=== PATIENT | male | born 2000 | race Caucasian/White ===

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

== ENCOUNTER 2020-02-14 06:13 | Inpatient (IN) | payer OTHER ==
[2020-02-14] MEDS ORDERED: Lorazepam 2 MG/ML VIAL ONE (06:25)
[2020-02-14 06:40] LABS: #Lymphocytes 1.2 thou/uL (1.20-3.40); #Monocytes 0.7 thou/uL (0.11-0.59); #Neutrophils 12.2 thou/uL (1.40-6.50); %Eosinophils 0.2 % (0.0-10.0); %Lymphocytes 8.7 % (28.0-48.0); %Monocytes 4.7 % (0.0-4.0); %Neutrophils 86.5 % (31.0-61.0); Mean Corpuscular HGB CONC 34.1 g/dL (32.0-36.0); Mean Corpuscular Volume 87.9 fL (78.0-98.0); Mean Platelet Volume 6.7 fL (7.4-10.4); Platelet Count 242 thou/uL (130-400); RBC Distribution Width 12.3 % (11.5-14.5); Red Blood Cell (RBC) Count 5.33 mill/uL (4.00-5.20); White Blood Cell (WBC) Count 14.1 thou/uL (4.8-10.8)
[2020-02-14 07:01] LABS: ALT (SGPT) 32 U/L (8-55); AST (SGOT) 35 U/L (10-45); Acetaminophen Less than 6.0 mcg/mL (10.0-30.0); Albumin 5.3 g/dL (3.5-5.0); Alcohol Less than 10 mg/dL (Less than 10); Alkaline Phosphatase 98 U/L (50-130); Anion Gap 12 mmol/L (10-20); BUN (Urea Nitrogen) 12 mg/dL (8.4-21.0); Bilirubin, Total 0.7 mg/dL (0.2-1.2); CK (CPK) 371 U/L (30-200); Calc. Creatinine Clearance 0 mL/min (70-130); Calcium 11.6 mg/dL (7.8-10.44); Carbon Dioxide 28 mmol/L (22-29); Chloride 106 mmol/L (98-107); Estimated GFR-MDRD Greater than 90; Globulin 2.8 g/dL (2.4-3.5); Glucose 101 mg/dL (70-105); Potassium 4.6 mmol/L (3.5-5.1); Protein, Total 8.1 g/dL (6.0-8.3); Salicylate Less than 8.0 mg/dL (15.0-30.0); Sodium 141 mmol/L (136-145)
[2020-02-14 07:28] LABS: Amphetamine Not Detected (NotDetected); Barbiturates Screen Not Detected (NotDetected); Benzodiazepine Screen Not Detected (NotDetected); Cocaine Metabolite Screen Not Detected (NotDetected); Medtox Control Line Valid? VALID (VALID); Medtox Reader # READER 4; Methadone Not Detected (NotDetected); Methamphetamine Not Detected (NotDetected); Opiate Screen Not Detected (NotDetected); Oxycodone Screen Not Detected (NotDetected); Phencyclidine (PCP) Not Detected (NotDetected); THC/Cannabinoid Screen Not Detected (NotDetected); Tricyclic Screen Not Detected (NotDetected)
--- NOTE | 2020-02-14 09:27 | CT ---
CT BRAIN WITHOUT CONTRAST: HISTORY: Altered mental status. The patient's father reports that he has been struggling with drug addiction. FINDINGS: No evidence of acute infarct, hemorrhage, midline shift or abnormal extraaxial fluid collection is se en. The ventricular size is normal and the basilar cisterns are patent. The bony calvarium is intact. The visualized paranasal sinuses and mastoid air cells are well aerated. IMPRESSION: No CT evidence of acute intracranial process. POS: [facility]GG[facility]
--- NOTE | 2020-02-14 10:17 | RAD ---
PORTABLE CHEST ONE VIEW: 02/14/20 10:09 a.m. HISTORY: Altered mental status. Drug addiction. FINDINGS: The heart size is normal. The lungs are well expanded without focal areas of consolidation, pneumotho races or pleural effusions. IMPRESSION: No radiographic evidence of acute cardiopulmonary process. POS: GREGGA
[2020-02-14] MEDS ORDERED: Lidocaine 1% w/Epinephrine 1:100K 20 ML VIAL ONE (11:22)
[2020-02-14 11:36] LABS: Bilirubin Negative (Negative); Blood, Urine Negative (Negative); Clarity Clear (Clear); Glucose, Urine (Dipstick) Normal (Negative); Ketone, Urine Negative (Negative); Leukocyte Negative Leu/uL (Negative); Nitrite Negative (Negative); Protein, Urine (Dipstick) Negative (Neg-Trace); Specific Gravity, Urine 1.005 (1.002-1.036); Urobilinogen Normal mg/dL (Less than 2)
[2020-02-14] MEDS ORDERED: Calcium Carbonate 500 MG ChewTAB PO PRN (11:42)
[2020-02-14] MEDS ORDERED: Senokot S 8.6-50 MG TAB PO PRN (11:42)
[2020-02-14] MEDS ORDERED: Acetaminophen 650 MG Suppository PR PRN (11:42)
[2020-02-14] MEDS ORDERED: Acetaminophen 325 MG TAB PO PRN (11:42)
[2020-02-14] MEDS ORDERED: Vancomycin 1 GM in Premix Bag 1 BAG IVPB SCH ×2 (12:00→21:00)
[2020-02-14 12:32] LABS: Color Of CSF Supernatant COLORLESS (Colorless); Tube # 1; Unspun CSF Color PINK (Colorless)
[2020-02-14] MEDS ORDERED: Sodium Chloride 0.9% (PF) 10 ML VIAL FS PRN (12:34)
[2020-02-14] MEDS ORDERED: Vancomycin 1.5 GRAM/300 ML BAG 1.5 GM in Premix Bag 1 BAG IVPB SCH ×2 (12:45→15:15)
[2020-02-14 12:46] LABS: CSF, Glucose 64 mg/dl (40-70); CSF, Protein 58 mg/dL (15-40)
[2020-02-14] MEDS ORDERED: cefTRIAXone\\ROCEPHIN 2 GM in Sodium Chloride 0.9% 100 ML IVPB SCH (13:00)
[2020-02-14 13:29] LABS: CSF Source CSF; Clarity Clear (Clear); Tube # 2; Tube # 4
--- NOTE | 2020-02-14 14:38 | HP ---
PRIMARY CARE PHYSICIAN: Dr. Jalloh with [facility]. CHIEF COMPLAINT: Altered mental status, possible polysubstance abuse. HISTORY OF PRESENT ILLNESS: The HPI was taken from the patient's parents at bedside secondary to the patient's altered mental status. The parents report that the patient has a significant history for polysubstance abuse including marijuana, Adderall, LSD, and acid, who presents to the ER for the above complaint. The mother and father report receiving a call around 0530 this morning from one of the patient's friends who reported that they had all been drinking and the patient's behavior was erratic. Also, he told them that the patient admitted to using LSD around 2330 that evening. The parents live very close to where their son was, so they drove to the house. Once there, the father reported that the patient was "jansen naked." He was non-violent, but he was acting "crazy." His speech was erratic with possible delusions. The father who loaded the patient into his car and drove to the ER. Of note, the patient was recently placed on Zoloft after seeing his primary care provider one week earlier. The mother also reports that she checked his pill bottle and he has been taking the medication as prescribed. In the ER, the patient was found with a normal temperature, high blood pressure , tachycardic, tachypneic with normal O2 saturation. CT of the brain was negative. Urine drug screen was negative. CK was 371. Electrolytes were unremarkable. WBCs were 14.1. The patient was given 2 mg of Ativan IV push and 1 L of normal saline, which seemed to improve the patient's erratic behavior. PAST MEDICAL HISTORY: Polysubstance abuse. PAST SURGICAL HISTORY: None. SOCIAL HISTORY: The patient lives alone in a garage apartment. He has a past medical history significant for marijuana abuse, Adderall abuse, LSD abuse, and acid abuse. He drinks alcohol frequently. No smoking history. He ambulates without any assistive devices. FAMILY HISTORY: The patient's uncle has a significant history for bipolar disease. ALLERGIES: NO KNOWN DRUG ALLERGIES. MEDICATIONS: Zoloft 100 mg p.o. daily. REVIEW OF SYSTEMS: All review of systems are negative unless otherwise stated in the HPI. PHYSICAL EXAMINATION: VITAL SIGNS: Temperature 99.3, blood pressure 128/77, pulse 72, respirations 18 , 100% on room air, 0/10 pain. CONSTITUTIONAL: The patient is somnolent, responds to verbal commands. He is confused. He is in no acute distress at this time. He has a normal blood pressure, normal pulse, normal respirations and is afebrile. HEAD: Atraumatic and normocephalic. EYES: Pupils are equal, round, and reactive to light. Extraocular muscles are intact. Sclerae nonicteric. ENT: Bilateral EACs are clear. TMs intact. Nares patent. Oropharynx is clear. Uvula midline. Moist mucous membranes. No oral lesions. NECK: Full range of motion. No cervical spinous tenderness. Trachea is midline. No JVD. No cervical adenopathy. RESPIRATORY/CHEST: Respirations even and nonlabored. Clear to auscultation. No rhonchi, wheezes, or rales. CARDIAC: S1, S2 appreciated. Regular rate and rhythm. No murmurs, rubs, or gallops. ABDOMEN: Abdomen is soft, nontender, nondistended. Active bowel sounds. No guarding. No rigidity. No rebound. Negative Mahan negative. Negative Rovsing sign. BACK: Full range of motion. No central spinous tenderness. No CVA tenderness. EXTREMITIES: Upper extremities; full range of motion, normal strength, sensation intact. Palpable radial pulses. Lower extremities; full range of motion, normal strength, sensation intact. Palpable pedal pulses. No swelling. NEUROLOGIC: The patient is somnolent, awakens to voice, able to follow commands , is confused. When asked his parents' names at bedside, he reported that he knew who they were, but could not repeat their names. He moves all extremities well. No focal motor deficits. PSYCHIATRIC: The patient's affect is inappropriate. The patient is somnolent, able to follow commands. SKIN: Multiple abrasions on to the right dorsum of the foot. LABS AND DIAGNOSTICS: EKG was sinus tachycardic with no ST elevations, heart rate 114. CT of the brain was negative. Chest x-ray was negative for any acute process. Urine drug screen was negative. Plasma alcohol was negative. UA was unremarkable. Sodium 141, potassium 4.6, chloride 106, carbon dioxide 28, BUN 12, creatinine 0.99, glucose 101, calcium 11.6, total bilirubin 0.7, AST 35, ALT 32, and alkaline phosphatase 98. CK 371. WBCs 14.1, hemoglobin 16, hematocrit 46.9, platelets 242. IMPRESSION AND PLAN: 1. Altered mental status. We will admit the patient to medical floor inpatient status. Expected length of stay at least 2 midnights. The patient presented with normal temperature, elevated blood pressure, tachycardic, tachypneic, normal O2 saturation. CT of the brain was negative for any acute process. Urine drug screen was negative. Electrolytes were unremarkable. CK was 371. The patient's symptoms improved with Ativan IV push and 1 L of normal saline. We will continue to IV hydrate. We will order a lumbar puncture. We will order pre-COVID test prior to lumbar puncture. We will check a TSH and a UA. We will obtain blood cultures and check a lactic acid. We will repeat a CMP and CBC in a.m. We will start the patient on broad-spectrum vanc and ceftriaxone for empiric antibiotic therapy at this time secondary to elevated white blood cell count. 2. History of polysubstance abuse. Parents report history of abuse of marijuana , Adderall, LSD, and acid. Recently saw his PCP and was started on Zoloft. They are very concerned and want help upon discharge. 3. Rhabdomyolysis, mild. The patient presented with a CK of 371. He has received 1 L of normal saline. We will continue normal saline. We will recheck level in the a.m. 4. SCDs for deep venous thrombosis prophylaxis. Protonix for gastrointestinal prophylaxis. The patient is a full code. The contact is his mother, Osiris, [phone]. 5. Discussed the case with Dr. Santos. Job ID: [id number] [facility]
[2020-02-14] MEDS: Sodium Chloride 0.9% 1,000 ML IV SCH ×2 (14:45→17:28)
[2020-02-14 15:02] VITALS: BMI 21.6
[2020-02-14] MEDS: Vancomycin 1 GM in Premix Bag 1 BAG IVPB SCH (15:25)
[2020-02-14] MEDS: Pantoprazole 40 MG VIAL IVP SCH (16:10)
[2020-02-15] MEDS: Sodium Chloride 0.9% 1,000 ML IV SCH ×2 (00:39→12:58)
[2020-02-15] MEDS: Vancomycin 1 GM in Premix Bag 1 BAG IVPB SCH ×2 (00:40→08:24)
[2020-02-15 05:50] LABS: #Basophils 0.1 thou/uL (0.0-0.2); #Eosinphils 0.2 thou/uL (0.0-0.7); #Monocytes 0.5 thou/uL (0.11-0.59); #Neutrophils 2.5 thou/uL (1.40-6.50); %Basophils 1.3 % (0.0-1.0); %Eosinophils 4.2 % (0.0-10.0); %Lymphocytes 37.7 % (28.0-48.0); %Monocytes 9.1 % (0.0-4.0); %Neutrophils 47.7 % (31.0-61.0); Hemoglobin 13.3 g/dL (14.0-18.0); Mean Corpuscular HGB CONC 32.8 g/dL (32.0-36.0); Mean Corpuscular Hemoglobin 29.5 pg (25.0-35.0); Mean Corpuscular Volume 89.7 fL (78.0-98.0); Mean Platelet Volume 6.7 fL (7.4-10.4); Platelet Count 173 thou/uL (130-400); RBC Distribution Width 12.4 % (11.5-14.5); Red Blood Cell (RBC) Count 4.53 mill/uL (4.00-5.20); White Blood Cell (WBC) Count 5.3 thou/uL (4.8-10.8)
[2020-02-15 06:26] LABS: ALT (SGPT) 21 U/L (8-55); AST (SGOT) 26 U/L (10-45); Alkaline Phosphatase 73 U/L (50-130); Anion Gap 10 mmol/L (10-20); BUN (Urea Nitrogen) 12 mg/dL (8.4-21.0); Bilirubin, Total 1.2 mg/dL (0.2-1.2); CK (CPK) 256 U/L (30-200); Calc. Creatinine Clearance 147 mL/min (70-130); Calcium 9.7 mg/dL (7.8-10.44); Carbon Dioxide 22 mmol/L (22-29); Chloride 111 mmol/L (98-107); Estimated GFR-MDRD Greater than 90; Globulin 1.9 g/dL (2.4-3.5); Glucose 68 mg/dL (70-105); Potassium 3.4 mmol/L (3.5-5.1); Protein, Total 5.9 g/dL (6.0-8.3); Sodium 140 mmol/L (136-145)
[2020-02-15] MEDS: Pantoprazole 40 MG VIAL IVP SCH (08:25)
[2020-02-15] MEDS ORDERED: Pantoprazole 40 MG VIAL IVP SCH (09:00)
[2020-02-15 14:49] LABS: HIV (1/2) Antibody/Antigen Non-Reactive (NonReactive); HIV 1/2 INDEX 0.14 S/CO (<1.00); Hep C IgG Ab Non-Reactive (NonReactive); Hep C Index 0.16 S/CO (0-0.79)
[2020-02-15 15:22] LABS: SARS-CoV-2 MS2 Positive; SARS-CoV-2 N Gene Negative; SARS-CoV-2 S Gene Negative; SARS-CoV-2 orf1ab Negative
[2020-02-15 15:51] VITALS: BP 103/62; TEMP 98.2
--- NOTE | 2020-02-16 05:02 | DIS ---
DATE OF ADMISSION: 02/14/2020 DATE OF DISCHARGE: 02/15/2020 HOSPITAL COURSE: Mr. Malin is a 19-year-old male with a medical history of recently diagnosed depression, polysubstance abuse including marijuana, Adderall , LSD, and acid, who presents for erratic behavior. The patient reportedly abused LSD and alcohol the night prior to presentation. This morning, the patient's parents received a call reporting that the patient was acting bizarrely. The patient was brought by the parents to the ED. Urine drug screen was negative. The patient was diagnosed with delirium due to acute intoxication that resolved hours after admission. [facility] was consulted and deemed the patient unfit for inpatient psychiatric admission. The parents and the patient were provided resources in order to address his polysubstance abuse disorder, and the father was requested to involve social work and his primary care physician with close followup in order to address his potential for self harm. PHYSICAL EXAMINATION: VITAL SIGNS: Blood pressure 103/62, pulse 76, respiratory rate 18, oxygen saturation 99% on room air, temperature 98.2 Fahrenheit. GENERAL: Lying comfortably in bed. Alert. HEENT: Normocephalic and atraumatic. Pupils, 3 mm bilaterally, reactive to light. CARDIAC: Regular rate and rhythm. No gallops, rubs, or murmurs. LUNGS: Clear to auscultation bilaterally. No wheezing, rales, or rhonchi. ABDOMEN: Nondistended, nontender, normal bowel sounds. EXTREMITIES: No edema. PSYCHIATRIC: Proper mood and affect. Alert and oriented x3. MEDICATION LIST: No new medications. Continued medications are Zoloft 50 mg daily. Job ID: [id number] MTDD
== END 2020-02-15 18:48 | disposition home or self-care (01) | DRG 897 ==
LOC: ERS 06:13 → T4-B 13:59
PROVIDERS: ADMIT Internal Medicine; ATTEND Internal Medicine
DX: F12.129 Cannabis abuse with intoxication, unspecified (principal); M62.82 Rhabdomyolysis; F17.290 Nicotine dependence, other tobacco product, uncomplicated
CPT/HCPCS: 36415; 51701; 62270; 70450; 71045; 80053; 80306; 80307; 81003; 82140; 82550; 82945; 83605; 83735; 84157; 84443; 85025; 86592; 86803; 87040; 87070; 87205; 87389; 87529; 87635; 89051; 93005; 96361; 96374; C9113; J0696; J2060; J3370; J3490; U0003